=== PATIENT | male | born 1960 | race Caucasian/White ===

== ENCOUNTER → 2020-11-07 09:03 | Outpatient (CLI) | payer OTHER, SELFPAY ==
[2020-11-07 12:00] LABS: COVID19 -Nasal RAPID Negative (Negative)
== END ==
PROVIDERS: Visit Provider Physician Assistant
DX: Z20.822 Contact with and (suspected) exposure to COVID-19 (principal)
CPT/HCPCS: 87635

== ENCOUNTER 2022-12-14 10:47 | Day surgery (SDC) | payer OTHER, SELFPAY ==
[2022-12-13 09:34] VITALS: BMI 37.8
[2022-12-14] VITALS (9 sets, daily range): BP systolic 139–166; BP diastolic 88–106; PULSE 50–76; RESP 10–22; TEMP 36.2–36.4; O2SAT 96–98; BMI 37.8
[2022-12-14] MEDS: LACTATED RINGERS 1,000 ML 100 ML IV (11:23)
--- NOTE | 2022-12-14 12:03 | PM.HP.1 ---
History of Present Illness History of Present Illness Date Patient Seen: 12/14/22 Time Patient Seen: 12:03 Chief complaint: SDC Narrative: 62-year-old man with a symptomatic umbilical hernia here for open hernia repair. Please refer to the H and P from September 2022 for further detail. There have been no significant interval changes in health. [facility] Medical History (Updated 12/13/22 @ 09:35 by Sita Padilla RN) GERD (gastroesophageal reflux disease) Heartburn History of deviated nasal septum HLD (hyperlipidemia) HTN (hypertension) Lactose intolerance Seasonal allergies Surgical History (Updated 12/13/22 @ 09:37 by Sita Padilla RN) History of nasal surgery Social History household members: spouse Smoking Status: Never smoker alcohol intake: never Meds Home Medications and Allergies Home Medications Medication Instructions Recorded Confirmed Type amlodipine 10 mg tablet 10 mg PO DAILY 10/12/22 12/14/22 History atorvastatin 40 mg tablet 40 mg PO DAILY 10/12/22 12/14/22 History azelastine 137 mcg (0.1 %) nasal 1 spray intranasal BID 10/12/22 12/14/22 History spray aerosol esomeprazole magnesium 40 mg 40 mg PO DAILY 10/12/22 12/14/22 History capsule,delayed release montelukast 10 mg tablet 10 mg PO DAILY 10/12/22 12/14/22 History Allergies Allergy/AdvReac Type Severity Reaction Status Date / Time No Known Drug Allergies Allergy Verified 12/14/22 11:04 Exam Vital Signs (past 8 hours): - 12/14/22 11:06 Temperature 97.4 F L Pulse Rate 76 Respiratory Rate 22 Blood Pressure 166/106 H Pulse Oximetry 98 Oxygen Delivery Method Room Air Oxygen Delivery Method Room Air Narrative Exam Narrative: General adult man alert oriented no acute distress Abdomen soft. Non reducible moderate-size umbilical hernia. Assessment & Plan Assessment and plan (1) Umbilical hernia: Qualifiers: Obstruction and gangrene presence: without obstruction or gangrene Qualified Code(s): K42.9 - Umbilical hernia without obstruction or gangrene Status: Acute Assessment & Plan narrative: 62-year-old man with a symptomatic umbilical hernia here for elective repair. Overview of the operation was again discussed with the patient at the bedside. Operative risks including hemorrhage, infection, hernia recurrence, damage to surrounding structures was discussed. Questions have been answered. He is in agreement with this plan and he provides his written and verbal consent to proceed.
--- NOTE | 2022-12-14 12:46 | SUR.OPER ---
Supine on padded OR bed, head on pillow, arms secured on padded arm boards at <90 degrees abduction, legs uncrossed, safety belt at thigh, tape over blanket over lower legs.
[2022-12-14] MEDS: CEFAZOLIN 2 GM/100 ML PREMIX 100 ML IV (12:56)
[2022-12-14] MEDS: BUPIVACAINE 0.25% (PF) VIAL 30 ML INJ (13:23)
[2022-12-14] MEDS: ONDANSETRON 4 MG/2 ML INJ IV (14:21)
[2022-12-14] MEDS: HYDROMORPHONE 2 MG INJ IV (14:29)
--- NOTE | 2022-12-14 14:30 | SUR.PHASEI ---
Pt medicated for nausea and pain.
[2022-12-14] MEDS: OXYCODONE/ACETAMINOPHEN 5/325 TABLET 1 TAB PO ×2 (14:52→15:21)
--- NOTE | 2022-12-15 17:29 | PM.OP.1 ---
Operative Date/Time/Diagnoses Date of procedure: 12/14/22 Time of procedure: 13:00 Pre-op diagnosis: Umbilical hernia Post-op diagnosis: same Procedure & Clinicians Procedure: Open umbilical hernia repair with mesh Same procedure as scheduled: Yes Indications: Symptomatic non reducible umbilical hernia Surgeon: Devin Arellano Anesthesia Type: General Operative Notes Findings: Omentum incarcerated with them within hernia sac. Viable Specimen(s): none sent Estimated Blood Loss (mL): 20 Procedure in detail: Patient was brought to the operating room placed supine on the table. Bilateral lower extremity compression devices were applied. General anesthesia was induced and they were intubated with an endotracheal tube. They received 2 g of Ancef prior to skin incision. They were prepped and draped in sterile fashion. A time-out was performed. A curvilinear incision was made inferior to the umbilicus. The subcutaneous tissues were divided. The umbilical hernia was identified and the hernia sac was dissected off the umbilical skin and circumferentially off of the fascia defect. The hernia sac was sharply opened and contained viable omentum. The omentum was reduced back into the abdomen. Using blunt dissection I carefully carefully freed the hernia sac from beneath the fascia defect in order to accomodate the mesh. The fascia defect was 2 cm in maximal diameter. A Bard Ventralex ST hernia patch 4 cm was inserted beneath the fascia defect and above the peritoneum in a sublay position. The mesh was anchored in multiple locations using Ethibond suture to the fascia and the fascial defect was closed over the mesh. The umbilical skin was tacked to the subcutaneous tissues and then the remainder of the subcutaneous tissues were reapproximated using 3 0 Vicry,l skin closed with 4 0 Monocryl followed by the application of Dermabond. Sponge instrument count at the end of the operation was correct. Patient tolerated procedure well was extubated and transferred to postoperative care unit in stable condition. Post-operative Condition: stable Disposition: same day surgery
== END 2022-12-14 15:25 | disposition home or self-care (01) ==
PROVIDERS: PCP Nurse Practitioner Family; Referring Provider Surgery; Visit Provider Surgery
PROC: (CPT 49592; principal; 2022-12-14 12:30)
DX: K42.0 Umbilical hernia with obstruction, without gangrene (principal)
CPT/HCPCS: 49592; J0690; J1100; J1170; J2405; J2704; J3010